=== PATIENT | male | born 2000 | race Caucasian/White ===

== ENCOUNTER 2023-01-31 18:19 | Emergency (ER) | payer BC, OTHER, SELFPAY ==
[2023-01-31 18:20] VITALS: BP 126/72; PULSE 95; RESP 17; TEMP 37; O2SAT 96; BMI 25.0
--- NOTE | 2023-01-31 18:45 | PC.NURSE ---
Dr. Watson at [facility] for pt eval
--- NOTE | 2023-01-31 18:49 | HMH.EDGENADL ---
Discharge Plan Disposition Patient Disposition: Home, Self-Care Prescriptions Prescriptions: New ibuprofen 800 mg tablet 800 mg PO TID PRN (Reason: pain) 7 Days Qty: 20 0RF ondansetron 4 mg tablet,disintegrating 4 mg PO Q6H PRN (Reason: nausea and vomiting) 5 Days Qty: 20 0RF Referrals Follow up/Referrals: Provider,Referral, MD [Primary Care Provider] - See instructions Activity Restrictions/Add. Instructions Additional Instructions/Restrictions: Turn with any worsening symptoms changes in mental status etc. Otherwise return to work as discussed. Clinical Impressions Clinical Impression: Concussion without loss of consciousness Stand Alone Forms Stand Alone Forms: Work/School Release Discharge ED Provider: Ramakrishna Watson General Adult HPI General Chief complaint: Head Injury Stated complaint: AO01/31@1600 bumped head Time Seen by Provider: 01/31/23 18:42 Mode of Arrival: Family Vehicle Source of Information: Patient Limitations: No Limitations Description of Symptoms (Recalled from ER Triage Doc. by RN): Pt c/o R pentecostal pain and dizziness after striking the R pentecostal with with a double freezer door. States he immediatly had spots to vision with R eye. Denies any continued vision trouble. He went home, took a nap, and when he woke up his girlfriend encouraged him to see treatment d/t his headache. Mild tenderness to site of injury. Skin intact, no bruising or redness noted. Denies any nausea, vomiting, or gait abnormality. This injury did occur at work, [employer]. History of Present Illness HPI narrative: Patient is a 22-year-old male present to the emergency department with a minor head injury. States that he was walking while at work and ran into a freezer door which hit the right lateral aspect of his head and he states that he felt dazed and saw some spots. This happened about 3 to 4 hours ago he actually left from work went home took a nap his girlfriend told him he need to come get evaluated. He has not had any persistent, new but has some to mild nausea. Denies any neurologic symptoms including numbness weakness tingling changes in vision coordination etc. No history of being on any anticoagulants or antiplatelets. No significant swelling or any other complaints from historical standpoint. Related Data Previous Rx's Medication Instructions Recorded ibuprofen 800 mg tablet 800 mg PO TID PRN pain 7 days #20 01/31/23 tabs ondansetron 4 mg disintegrating 4 mg PO Q6H PRN nausea and 01/31/23 tablet vomiting 5 days #20 tabs Allergies Allergy/AdvReac Type Severity Reaction Status Date / Time No Known Allergies Allergy Verified 01/31/23 18:48 PFSH [facility] Disclaimer: The information contained in this section may have been updated after the patient was seen, as this information can be updated by other users. Social History Smoking Status: Current every day smoker alcohol intake: never current occupational status: other Travel in the last 8 weeks: None ROS Obtained: Yes All systems reviewed & no additional complaints except as documented Physical Exam General General appearance: alert Head Head exam: atraumatic, normocephalic, normal inspection and other (No evidence of depressed call fracture gonzalez sign raccoon eyes etc.) Neck Neck exam: Present other (Normal bilateral upper extremity neurologic exam); Absent tenderness Respiratory Respiratory exam: Present normal lung sounds bilaterally Cardiovascular Cardiovascular exam: Present regular rate; Absent tachycardia Neurological Exam Neurological exam: Present alert, oriented X3, CN II-XII intact and normal gait; Absent motor sensory deficit Medical Decision Making Andrew Inquiry Pt receiving controlled substance: No Vital Signs: 01/31/23 18:20 Temperature 98.6 F Temperature Source Oral Pulse Rate [Right] 95 H Respiratory Rate 17 Blood Pressure [Right Arm] 126/72 Blood Pressure Mean [Right Arm] 90 Blood Pressu
[2023-01-31 18:52] VITALS: BP 122/67; PULSE 88; RESP 16; TEMP 37; O2SAT 98
== END 2023-01-31 18:58 | disposition home or self-care (01) ==
PROVIDERS: Emergency Provider Student in an Organized Health Care Education/Training Program
DX: S06.0X0A Concussion without loss of consciousness, initial encounter (principal); F17.210 Nicotine dependence, cigarettes, uncomplicated; W22.8XXA Striking against or struck by other objects, initial encounter
CPT/HCPCS: 99283

== ENCOUNTER 2023-03-24 21:28 | Emergency (ER) | payer OTHER, SELFPAY ==
[2023-03-24 21:34] VITALS: BP 144/75; PULSE 76; RESP 15; TEMP 36.9; O2SAT 99; BMI 27.5
[2023-03-24 21:46] LABS: Coronavirus 19, PCR Not Detected (NotDetected); Influenza A, PCR Not Detected (NotDetected); Influenza B, PCR Not Detected (NotDetected)
[2023-03-24 21:59] LABS: Strep Scrn Group A (Rapid) Negative (Negative)
--- NOTE | 2023-03-24 22:30 | HMH.EDGENADL ---
Discharge Plan Disposition Patient Disposition: Home, Self-Care Prescriptions Prescriptions: No Action ibuprofen 800 mg tablet 800 mg PO TID PRN (Reason: pain) 7 Days Qty: 20 0RF ondansetron 4 mg tablet,disintegrating 4 mg PO Q6H PRN (Reason: nausea and vomiting) 5 Days Qty: 20 0RF Referrals Follow up/Referrals: Provider,Referral, [Primary Care Provider] - See instructions Activity Restrictions/Add. Instructions Additional Instructions/Restrictions: Call your family doctor to establish care for this visit to the emergency department and schedule follow-up within 48 hours to ensure improvement. If you have any worsening of your condition or any other concerning signs or symptoms, return to the emergency department or your primary care doctor for further evaluation. Clinical Impressions Clinical Impression: Acute viral pharyngitis Discharge ED Provider: Estevan Vick General Adult HPI General Chief complaint: Upper Respiratory Infection Stated complaint: sore throat covid test Time Seen by Provider: 03/24/23 21:38 Mode of Arrival: Family Vehicle Source of Information: Patient Limitations: No Limitations Description of Symptoms (Recalled from ER Triage Doc. by RN): sinus congestion progressing into cough, sore throat and chest congestion over the course of the last week. afebrile. would like a covid swab History of Present Illness HPI narrative: 22-year-old male presenting with sore throat and ear pain. Started going on a couple days prior, significant other presenting in the same room for similar symptoms. No drainage from ear think she has had fevers that she has not measured. Cough and congestion as well. Takes daily allergy medication. History was obtained via conversation with patient. Related Data Previous Rx's Medication Instructions Recorded ibuprofen 800 mg tablet 800 mg PO TID PRN pain 7 days #20 01/31/23 tabs ondansetron 4 mg disintegrating 4 mg PO Q6H PRN nausea and 01/31/23 tablet vomiting 5 days #20 tabs Allergies Allergy/AdvReac Type Severity Reaction Status Date / Time No Known Allergies Allergy Verified 01/31/23 18:48 [facility] Disclaimer: The information contained in this section may have been updated after the patient was seen, as this information can be updated by other users. Social History (Updated 01/31/23 @ 18:52 by Ramakrishna Watson MD) Smoking Status: Current every day smoker alcohol intake: never current occupational status: other Travel in the last 8 weeks: None ROS Obtained: Yes All systems reviewed & no additional complaints except as documented Physical Exam General General appearance: alert and in no apparent distress Head Head exam: atraumatic and normocephalic Eye Eye exam: Present normal appearance, PERRL and EOMI ENT ENT exam: Present mucous membranes moist Neck Neck exam: Present normal inspection, full ROM and trachea midline Respiratory Respiratory exam: Absent respiratory distress, wheezes, stridor, accessory muscle use or prolonged expiratory phase Cardiovascular Cardiovascular exam: Present normal rhythm Abdominal Exam Abdominal exam: Present soft; Absent distention, tenderness, guarding, rebound, rigidity or normal bowel sounds Extremities Exam Extremities exam: Absent edema Neurological Exam Neurological exam: Present alert, oriented X3, CN II-XII intact and normal gait; Absent motor sensory deficit Skin Skin exam: Present warm and dry; Absent diaphoresis or erythema Medical Decision Making Medical Records Medical records reviewed: Yes I reviewed the patient's medical records. Andrew Inquiry Pt receiving controlled substance: No Andrew was queried for this patient: No Vital Signs: 03/24/23 21:34 03/24/23 22:33 Temperature 98.5 F 98.1 F Temperature Source Oral Pulse Rate 70 Pulse Rate [Right Brachial] 76 Respiratory Rate 15 20 Blood Pressure 138/70 Blood Pressure [Right Arm] 144/75 H Blood Pressur
[2023-03-24 22:33] VITALS: BP 138/70; PULSE 70; RESP 20; TEMP 36.7; O2SAT 97
--- NOTE | 2023-03-28 15:05 | PC.NURSE ---
pt strep culture reported positive for strep A. notified and prescribed the pt Amoxicillin 500mg BID x 10 days. spoke to [facility] pharmacy to call in prescription. 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
== END 2023-03-24 22:46 | disposition home or self-care (01) ==
PROVIDERS: Emergency Provider Emergency Medicine
DX: J02.9 Acute pharyngitis, unspecified (principal); R05.9 Cough, unspecified; H92.09 Otalgia, unspecified ear; F17.200 Nicotine dependence, unspecified, uncomplicated
CPT/HCPCS: 87430; 87636; 99283